=== PATIENT | female | born 1990 | race African-American/Black ===

== ENCOUNTER 2024-04-05 18:00 | Inpatient (IN) | payer BC ==
[2024-04-05 18:51] VITALS: BMI 21.4
[2024-04-05] MEDS ORDERED: DICYCLOMINE HCL 10 MG CAPSULE PO PRN (19:54)
[2024-04-05] MEDS ORDERED: ACETAMINOPHEN 325 MG TABLET (FP) PO PRN (19:54)
[2024-04-05] MEDS ORDERED: hydrOXYzine PAMOATE 25 MG CAPSULE (FP) PO PRN ×2 (19:54→19:57)
[2024-04-05] MEDS ORDERED: IBUPROFEN 600 MG TABLET (FP) PO ONE (19:57)
[2024-04-05] MEDS ORDERED: MAG HYDROX/AL HYDROX/SIMETH 30 ML UNIT-DOSE CUP PO PRN (19:57)
[2024-04-05] MEDS ORDERED: LOPERAMIDE HCL 2 MG CAPSULE PO PRN (19:57)
[2024-04-05] MEDS ORDERED: METHOCARBAMOL 500 MG TABLET PO PRN (19:57)
[2024-04-05] MEDS: IBUPROFEN 600 MG TABLET (FP) PO ONE (21:55)
[2024-04-05] MEDS: ONDANSETRON *ODT* 4 MG TABLET SL PRN (22:18)
[2024-04-06] MEDS ORDERED: chlordiazePOXIDE HCL 25 MG CAPSULE PO PRN (08:45)
[2024-04-06] MEDS: chlordiazePOXIDE HCL 25 MG CAPSULE PO ONE (09:18)
[2024-04-06] MEDS: NICOTINE 14 MG/24 HOURS TOPICAL PATCH TD SCH (09:19)
[2024-04-06] MEDS: PRENATAL VITAMINS W/ FOLIC ACID TABLET (FP) PO SCH (09:20)
[2024-04-06] MEDS: NICOTINE POLACRILEX 4 MG LOZENGE BC PRN (10:36)
[2024-04-06] MEDS: chlordiazePOXIDE HCL 25 MG CAPSULE PO SCH (11:32)
[2024-04-07 18:03] VITALS: BP 117/84; PULSE 80; RESP 17; TEMP 97.9
[2024-04-08] MEDS ORDERED: chlordiazePOXIDE HCL 25 MG CAPSULE PO SCH (05:00)
[2024-04-09] MEDS ORDERED: chlordiazePOXIDE HCL 10 MG CAPSULE PO PRN
[2024-04-09] MEDS ORDERED: chlordiazePOXIDE HCL 10 MG CAPSULE PO SCH (05:00)
[2024-04-10] MEDS ORDERED: chlordiazePOXIDE HCL 10 MG CAPSULE PO SCH (05:00)
[2024-04-11] MEDS ORDERED: chlordiazePOXIDE HCL 10 MG CAPSULE PO ONE (05:00)
== END 2024-04-07 18:20 | disposition left against medical advice (07) | DRG 894 ==
LOC: YASAS 18:00 → Y6N 20:24
PROVIDERS: ADMIT Allergy & Immunology; ATTEND Surgery
PROC: HZ2ZZZZ Detoxification Services for Substance Abuse Treatment (ICD-10-PCS; principal; 2024-04-05)
DX: F10.230 Alcohol dependence with withdrawal, uncomplicated (principal); F33.1 Major depressive disorder, recurrent, moderate; F17.210 Nicotine dependence, cigarettes, uncomplicated; F41.1 Generalized anxiety disorder; F43.10 Post-traumatic stress disorder, unspecified
CPT/HCPCS: 36415; 80305; 80307; 81025; 93005; 93010; Q0162